=== PATIENT | female | born 1980 | race Caucasian/White ===

== ENCOUNTER 2019-03-17 10:45 | Emergency (ER) | payer SELFPAY ==
--- NOTE | 2019-03-17 12:11 | ED ---
Complex/Multi-Sys Presentation - HPI Summary HPI Summary: 38-year-old female presents with potential CO exposure today. States that on Sunday she was at work and started to develop a headache and palpitations. She states that she felt off. She went home and became very tired. She states that on Sunday she also felt little bit more tired than normal. Today went back to work and her symptoms return. She states that since she left work she has had a headache that has been improving. She has no medical conditions. Is not a smoker. Building was found to have CO. - History Of Current Complaint Chief Complaint: EDChemNuclearExpose Time Seen by Provider: 03/17/19 11:24 - Allergies/Home Medications Allergies/Adverse Reactions: Allergies Allergy/AdvReac Type Severity Reaction Status Date / Time Penicillins Allergy Hives Verified 03/17/19 10:55 PMH/Surg Hx/FS Hx/Imm Hx Endocrine/Hematology History: Denies: Hx Anticoagulant Therapy Respiratory History: Denies: Hx Asthma Infectious Disease History: No Infectious Disease History: Denies: Traveled Outside the [place] in Last 30 Days - Social History Substance Use Type: Reports: None Smoking Status (MU): Never Smoked Tobacco Review of Systems Negative: Fever Negative: Chest Pain Negative: Shortness Of Breath Positive: Headache - resolving All Other Systems Reviewed And Are Negative: Yes Physical Exam Triage Information Reviewed: Yes Vital Signs On Initial Exam: Initial Vitals Temp Pulse Resp BP Pulse Ox 96.8 F 90 16 117/91 99 03/17/19 10:50 03/17/19 10:50 03/17/19 10:50 03/17/19 10:50 03/17/19 10:50 Vital Signs Reviewed: Yes Appearance: Positive: Well-Appearing Skin: Positive: Warm, Dry Head/Face: Positive: Normal Head/Face Inspection Eyes: Positive: Normal, Conjunctiva Clear ENT: Positive: Pharynx normal Respiratory/Lung Sounds: Positive: Clear to Auscultation, Breath Sounds Present Cardiovascular: Positive: Normal, RRR Musculoskeletal: Positive: Normal Neurological: Positive: Normal Psychiatric: Positive: Normal Procedures - Sedation Patient Received Moderate/Deep Sedation with Procedure: No Diagnostics - Vital Signs Vital Signs Temp Pulse Resp BP Pulse Ox 03/17/19 10:50 96.8 F 90 16 117/91 99 - Laboratory Lab Results: Lab Results 10/28/19 Range/Units 11:37 Carbon Monoxide Screen <4.0 (<4.0) % Lab Statement: Any lab studies that have been ordered have been reviewed, and results considered in the medical decision making process. Complex Multi-Symp Course/Dx Course Of Treatment: 38-year-old female presents with potential CO exposure today. States that on Sunday she was at work and started to develop a headache and palpitations. She states that she felt off. She went home and became very tired. She states that on Sunday she also felt little bit more tired than normal. Today went back to work and her symptoms return. She states that since she left work she has had a headache that has been improving. She has no medical conditions. Is not a smoker. Building was found to have CO. On exam has normal physical exam. CO level was less than 4. Patient understands and agrees with plan. - Diagnoses Differential Diagnoses/HQI/PQRI: Other - co exposure Provider Diagnoses: Carbon monoxide exposure Discharge ED - Sign-Out/Discharge Documenting (check all that apply): Patient Departure - Discharge Plan Condition: Good Disposition: HOME Patient Education Materials: Carbon Monoxide Poisoning (ED) Referrals: Nika Hill MD [Primary Care Provider] - Additional Instructions: your level is back to normal Return to ED if develop any new or worsening symptoms - Billing Disposition and Condition Condition: GOOD Disposition: Home
[2019-03-17 12:33] VITALS: BP 124/79
== END 2019-03-17 12:32 | disposition home or self-care (01) ==
LOC: ED 10:45
DX: T58.91XA Toxic effect of carbon monoxide from unspecified source, accidental (unintentional), initial encounter (principal); R51 Headache; Z88.0 Allergy status to penicillin
CPT/HCPCS: 36415; 82375; 99282

== ENCOUNTER 2019-03-18 13:41 | Emergency (ER) | payer SELFPAY ==
[2019-03-18] MEDS ORDERED: Acetaminophen TAB* 325 MG PO ONE (14:29)
--- NOTE | 2019-03-18 14:44 | ED ---
Headache - HPI Summary HPI Summary: Pt is a 38 y/o F presenting to the ED with a chief complaint of a headache. She states she was exposed to CO yesterday at work, and was seen in the emergency department where her labs returned WNL. She went back to work for approx. 5 hours, and developed a headache shortly after being back. She notes headache, sore throat this morning, fatigue, feeling foggy and out of it. She notes hx of palpitations, resolved. She denies congestion, rhinorrhea, fever, cough, or CP. - History Of Current Complaint Chief Complaint: EDHeadache Stated Complaint: F/U CARBON MONOXIDE EXPOSURE PER PT Time Seen by Provider: 03/18/19 14:12 Hx Obtained From: Patient Onset/Duration: Sudden Onset, Started hours ago, Still Present Initially Headache Was: Moderate Currently Pain Is: Moderate Timing: Constant, Hours Character: Typical Headache Location of Headache: Diffuse Aggravating Factor: Nothing Allevating Factors: Nothing Associated Signs And Symptoms: Negative - Allergies/Home Medications Allergies/Adverse Reactions: Allergies Allergy/AdvReac Type Severity Reaction Status Date / Time Penicillins Allergy Hives Verified 03/17/19 10:55 PMH/Surg Hx/FS Hx/Imm Hx Previously Healthy: Yes Endocrine/Hematology History: Denies: Hx Anticoagulant Therapy Respiratory History: Denies: Hx Asthma - Immunization History Immunizations Up to Date: Yes Infectious Disease History: No Infectious Disease History: Denies: Traveled Outside the [place] in Last 30 Days - Family History Known Family History: Negative: Diabetes - Social History Alcohol Use: Weekly Hx Substance Use: No Substance Use Type: Reports: None Hx Tobacco Use: No Smoking Status (MU): Never Smoked Tobacco Review of Systems Positive: Fatigue. Negative: Fever Positive: Sore Throat. Negative: Nasal Discharge Negative: Chest Pain Negative: Cough Positive: Headache All Other Systems Reviewed And Are Negative: Yes Physical Exam - Summary Physical Exam Summary: General: Well appearing, no distress HEENT: PERRL. No pharyngeal erythema or exudates, no nuchal rigidity Cardiovascular: Skin is well perfused Pulmonary: No respiratory distress, no tachypnea Abdomen: Non-distended Skin: Warm, pink, dry MSK: No edema Psych: Normal affect Neuro: A&Ox3 Triage Information Reviewed: Yes Vital Signs On Initial Exam: Initial Vitals Temp Pulse Resp BP Pulse Ox 98.1 F 78 20 136/90 100 03/18/19 13:41 03/18/19 13:41 03/18/19 13:41 03/18/19 13:41 03/18/19 13:41 Vital Signs Reviewed: Yes Procedures - Sedation Patient Received Moderate/Deep Sedation with Procedure: No Diagnostics - Vital Signs Vital Signs Temp Pulse Resp BP Pulse Ox 03/18/19 13:41 98.1 F 78 20 136/90 100 - Laboratory Lab Statement: Any lab studies that have been ordered have been reviewed, and results considered in the medical decision making process. Headache Course/Dx - Course Course Of Treatment: 38-year-old female with concern for, monoxide exposure presents with headache. Carbon monoxide negative yesterday, patient concerned about second exposure we'll send second blood level otherwise we'll treat symptomatically for headache. History of headaches of similar type. This is not the worst headache patient has had, and no additional features today to suggest need for further workup on a truly emergent basis (imaging, LP, etc). - Diagnoses Provider Diagnoses: Headache Discharge ED - Sign-Out/Discharge Documenting (check all that apply): Patient Departure - Discharge Plan Condition: Stable Disposition: HOME Patient Education Materials: General Headache (ED) Referrals: Nika Hill MD [Primary Care Provider] - Additional Instructions: You were seen in the emergency department for headache. Your carbon monoxide level is normal. Please follow up with your primary care doctor, return for worsening pain, headaches, chest pain or passing out. It was a pleasure taking care of you today. - Billing Disposition and Condition Condition: STABLE Disposition: Home - Attestation Statements Document Initiated by Luigiibe: Yes Documenting Scribe: Carissa Moise Provider For Whom Anish is Documenting (Include Credential): Debra Rose MD. Scribe Attestation: I, Carissa Moise, scribed for Debra Rose MD. on 03/18/19 at 2037. Scribe Documentation Reviewed: Yes Provider Attestation: The documentation as recorded by the scribe, Carissa Moise accurately reflects the service I personally performed and the decisions made by me, Debra Rose MD. Status of Scribe Document: Viewed
[2019-03-18 15:00] VITALS: BP 125/90
== END 2019-03-18 15:06 | disposition home or self-care (01) ==
LOC: ED 13:41
DX: R51 Headache (principal); Z57.39 Occupational exposure to other air contaminants; Y99.0 Civilian activity done for income or pay
CPT/HCPCS: 36415; 82375; 99282; A9270-GY